=== PATIENT | female | born 1945 | race Caucasian/White ===

== ENCOUNTER 2017-07-18 05:57 | Emergency (ER) | payer OTHER ==
[~2017-07-18] VITALS: Ht 157.5 cm; Wt 57.2 kg
[2017-07-18] MEDS ORDERED: XANAX XR0.5 MG (06:09)
[2017-07-18] MEDS ORDERED: PERCOCET 5-3251 EACH PO (06:44)
== END 2017-07-18 06:55 | disposition home or self-care (01) ==
LOC: ER 05:57
DX: M25.562 Pain in left knee (principal)